=== PATIENT | male | born 1975 | race Caucasian/White ===

== ENCOUNTER 2016-11-16 03:30 | Emergency (ER) | payer MEDICAID ==
[~2016-11-16] VITALS: Ht 172.7 cm; Wt 82.1 kg
[2016-11-16 03:31] VITALS: BP 118/74
[2016-11-16] MEDS ORDERED: IBUPROFEN 200 MG TABLET ONE (03:54)
[2016-11-16] MEDS ORDERED: IBUPROFEN 200 MG TABLET PO ONE (04:00)
== END 2016-11-16 04:52 | disposition home or self-care (01) ==
LOC: ED 04:51
DX: S06.9X2A Unspecified intracranial injury with loss of consciousness of 31 minutes to 59 minutes, initial encounter (principal); S63.622A Sprain of interphalangeal joint of left thumb, initial encounter; Z88.6 Allergy status to analgesic agent; V86.59XA Driver of other special all-terrain or other off-road motor vehicle injured in nontraffic accident, initial encounter; Y99.8 Other external cause status; Y92.488 Other paved roadways as the place of occurrence of the external cause
CPT/HCPCS: 70450; 99284

== ENCOUNTER 2017-06-23 17:43 | Emergency (ER) | payer MEDICAID ==
[~2017-06-23] VITALS: Ht 172.7 cm; Wt 82.5 kg
[2017-06-23 18:00] VITALS: BP 108/69
== END 2017-06-23 19:11 | disposition home or self-care (01) ==
LOC: ED 19:05
DX: K04.7 Periapical abscess without sinus (principal); K02.9 Dental caries, unspecified
CPT/HCPCS: 99283

== ENCOUNTER 2018-04-22 11:18 | Emergency (ER) | payer MEDICAID ==
[~2018-04-22] VITALS: Ht 172.7 cm; Wt 82.0 kg
[2018-04-22] MEDS ORDERED: ALBUTEROL/IPRATROPIUM 2.5MG/0.5MG, 3 ML ONE (11:57)
[2018-04-22] MEDS ORDERED: ALBUTEROL/IPRATROPIUM 2.5MG/0.5MG, 3 ML NPPB ONE (12:00)
[2018-04-22 12:17] LABS: BASOPHILS # (AUTO) 0.04 x10^3/uL (0-0.1); BASOPHILS % (AUTO) 1 % (0-1); EOSINOPHILS # (AUTO) 0.17 x10^3/uL (0-0.4); EOSINOPHILS % (AUTO) 3 % (1-7); LYMPHOCYTES # (AUTO) 1.22 x10^3/uL (1-3.4); LYMPHOCYTES % (AUTO) 20 % (22-44); MD NO; MEAN CORPUSCULAR HGB CONC 34.1 g/dL (33.2-36.2); MEAN CORPUSCULAR VOLUME 93.9 fL (81-97); MEAN PLATELET VOLUME 7.6 fL (7.4-10.4); MONOCYTES # (AUTO) 0.46 x10^3/uL (0.2-0.8); MONOCYTES % (AUTO) 7 % (2-9); NEUTROPHILS # (AUTO) 4.37 x10^3/uL (1.8-6.8); NEUTROPHILS % (AUTO) 70 % (42-75); PLATELET COUNT 289 x10^3/uL (130-400); RED BLOOD COUNT 4.91 x10^6/uL (4.38-5.82); RED CELL DISTRIBUTION WIDTH 13.8 % (9.4-14.8)
[2018-04-22 12:29] LABS: ALBUMIN 3.3 g/dL (3.4-5.0); ANION GAP 7 mmol/L (5-15); CALCIUM 8.6 mg/dL (8.5-10.1); CHLORIDE 108 mmol/L (98-107); CREATININE 0.86 mg/dL (0.7-1.3)
[2018-04-22 12:32] LABS: TROPONIN I < 0.015 ng/mL (0.000-0.045)
[2018-04-22 13:20] VITALS: BP 124/62
== END 2018-04-22 13:26 | disposition home or self-care (01) ==
LOC: ED 13:15
DX: R07.89 Other chest pain (principal); J20.8 Acute bronchitis due to other specified organisms; B97.89 Other viral agents as the cause of diseases classified elsewhere; F17.200 Nicotine dependence, unspecified, uncomplicated
CPT/HCPCS: 36415; 71046; 80048; 82040; 84484; 85025; 93005; 99285; J7512

== ENCOUNTER 2018-04-29 09:53 | Emergency (ER) | payer MEDICAID ==
[~2018-04-29] VITALS: Ht 172.7 cm; Wt 76.2 kg
[2018-04-29 09:56] VITALS: BP 126/76
[2018-04-29] MEDS ORDERED: METHOCARBAMOL 750 MG TABLET ONE (10:28)
[2018-04-29] MEDS ORDERED: KETOROLAC 30 MG/1 ML ONE (10:29)
[2018-04-29] MEDS ORDERED: KETOROLAC 30 MG/1 ML IM ONE (10:30)
[2018-04-29] MEDS ORDERED: METHOCARBAMOL 750 MG TABLET PO ONE (10:30)
== END 2018-04-29 10:39 | disposition home or self-care (01) ==
LOC: ED 10:23
DX: M54.42 Lumbago with sciatica, left side (principal); F17.200 Nicotine dependence, unspecified, uncomplicated
CPT/HCPCS: 96372; 99283; J1885; J7512

== ENCOUNTER 2018-05-30 11:33 | Emergency (ER) | payer MEDICAID ==
[~2018-05-30] VITALS: Ht 172.7 cm; Wt 82.8 kg
[2018-05-30] MEDS ORDERED: KETOROLAC 30 MG/1 ML ONE (12:22)
[2018-05-30] MEDS ORDERED: KETOROLAC 30 MG/1 ML IM ONE (12:30)
[2018-05-30 13:26] VITALS: BP 120/78
== END 2018-05-30 14:55 | disposition home or self-care (01) ==
LOC: ED 12:06
DX: S22.22XA Fracture of body of sternum, initial encounter for closed fracture (principal); Z88.6 Allergy status to analgesic agent; V17.0XXA Pedal cycle driver injured in collision with fixed or stationary object in nontraffic accident, initial encounter; Y93.55 Activity, bike riding; Y92.410 Unspecified street and highway as the place of occurrence of the external cause; Y99.8 Other external cause status
CPT/HCPCS: 71046; 71250; 93005; 96372; 99284; J1885

== ENCOUNTER 2018-06-04 21:04 | Emergency (ER) | payer MEDICAID ==
[~2018-06-04] VITALS: Ht 175.3 cm; Wt 78.8 kg
[2018-06-04] MEDS ORDERED: OXYcodone/APAP 5/325MG TABLET PO ONE (21:30)
[2018-06-04] MEDS ORDERED: OXYC-302 PO (21:32)
[2018-06-04] MEDS ORDERED: IBUP-1222 PO (21:32)
[2018-06-04] MEDS ORDERED: OXYcodone/APAP 5/325MG TABLET ONE (21:34)
[2018-06-04 21:35] VITALS: BP 123/77
== END 2018-06-04 22:32 | disposition home or self-care (01) ==
LOC: ED 21:34
DX: S22.20XA Unspecified fracture of sternum, initial encounter for closed fracture (principal); F17.210 Nicotine dependence, cigarettes, uncomplicated; X58.XXXA Exposure to other specified factors, initial encounter; Y93.89 Activity, other specified; Y92.89 Other specified places as the place of occurrence of the external cause; Y99.8 Other external cause status
CPT/HCPCS: 71046; 93005; 99283

== ENCOUNTER 2018-06-11 21:08 | Emergency (ER) | payer MEDICAID ==
[~2018-06-11] VITALS: Ht 172.7 cm; Wt 81.8 kg
[~2018-06-11 21:08] MED LIST: IBUP-1222 PO; OXYC-302 PO
[2018-06-11 21:10] VITALS: BP 117/79
--- NOTE | 2018-06-11 21:19 | NUR ---
Pt wheeled to room with triage tech.
--- NOTE | 2018-06-11 21:32 | NUR ---
Dr. Posadas at bedside to evaluate pt.
[2018-06-11] MEDS ORDERED: KETOROLAC 30 MG/1 ML ONE (21:40)
--- NOTE | 2018-06-11 21:42 | NUR ---
Pt to imaging, with tech, on randy.
--- NOTE | 2018-06-11 21:52 | NUR ---
Pt back to room from imaging, medicated per AUG.
[2018-06-11] MEDS ORDERED: KETOROLAC 30 MG/1 ML IM ONE (22:00)
--- NOTE | 2018-06-11 22:12 | NUR ---
Patient/Caregiver given discharge instructions and they have confirmed that they understand the instructions. Patient ambulatory with steady gait.
== END 2018-06-11 22:13 | disposition home or self-care (01) ==
LOC: ED 22:12
DX: S22.20XA Unspecified fracture of sternum, initial encounter for closed fracture (principal); G89.11 Acute pain due to trauma; M25.552 Pain in left hip; F17.200 Nicotine dependence, unspecified, uncomplicated; X58.XXXA Exposure to other specified factors, initial encounter; Y93.89 Activity, other specified; Y92.89 Other specified places as the place of occurrence of the external cause; Y99.8 Other external cause status
CPT/HCPCS: 71046; 73502; 93005; 96372; 99283; J1885

== ENCOUNTER 2018-08-09 05:43 | Emergency (ER) | payer MEDICAID ==
[~2018-08-09] VITALS: Ht 172.7 cm; Wt 80.6 kg
[2018-08-09 05:55] VITALS: BP 145/74
[2018-08-09] MEDS ORDERED: IBUPROFEN 200 MG TABLET ONE (06:36)
[2018-08-09] MEDS ORDERED: HYDROcodone/APAP 5/325 TABLET ONE (06:36)
--- NOTE | 2018-08-09 06:41 | NUR ---
PT MEDICATED FOR PAIN AND WAITING FOR XRAY
[2018-08-09] MEDS ORDERED: IBUPROFEN 200 MG TABLET PO ONE (07:00)
[2018-08-09] MEDS ORDERED: HYDROcodone/APAP 5/325 TABLET PO ONE (07:00)
--- NOTE | 2018-08-09 08:48 | NUR ---
Patient/Caregiver given discharge instructions and they have confirmed that they understand the instructions. Patient ambulatory with steady gait. PT LEFT WITH ALL PERSONAL BELONGINGS.
== END 2018-08-09 08:49 | disposition home or self-care (01) ==
LOC: ED 07:13
DX: S63.641A Sprain of metacarpophalangeal joint of right thumb, initial encounter (principal); W00.0XXA Fall on same level due to ice and snow, initial encounter; Y93.89 Activity, other specified; Y92.410 Unspecified street and highway as the place of occurrence of the external cause; Y99.8 Other external cause status
CPT/HCPCS: 29125; 99283

== ENCOUNTER 2018-08-12 19:19 | Emergency (ER) | payer MEDICAID ==
[~2018-08-12] VITALS: Ht 172.7 cm; Wt 78.5 kg
[2018-08-12 19:21] VITALS: BP 128/76
[2018-08-12] MEDS ORDERED: CEPHALEXIN 500 MG CAPSULE PO ONE (20:00)
[2018-08-12] MEDS ORDERED: CEPHALEXIN 500 MG CAPSULE ONE (20:14)
--- NOTE | 2018-08-12 20:19 | NUR ---
PT REFUSE SPLINT
== END 2018-08-12 20:25 | disposition home or self-care (01) ==
LOC: ED 20:22
DX: L03.011 Cellulitis of right finger (principal); F17.200 Nicotine dependence, unspecified, uncomplicated
CPT/HCPCS: 29125; 99283

== ENCOUNTER 2018-08-15 23:08 | Inpatient (IN) | payer MEDICAID ==
[~2018-08-15] VITALS: Ht 172.7 cm; Wt 72.5 kg
--- NOTE | 2018-08-15 23:33 | NUR ---
PT. TO ED WITH C/O RIGHT THUMB/INDEX FINGER PAIN AND SWELLING WORSE OVER THE LAST WEEK. REPORTS HE SMASHED IT ABOUT A MONTH AGO. HAS TAKEN ROUNDS OF ABX HAVE BEEN GIVEN RX FROM THIS HOSPITAL. SIGNIFICANT SWELLING NOTE. FINGER/THUMB GLEZ IN APPEARENCE. RED LINE GOING UP PT. FOREARM. PT. VERY RESTLESS IN ROOM PAICING AROUND AND VERY TEARFUL. IV ESTABLISHED. BLOOD DRAWN. AWAITING PROVIDER EVAL. PT. OFFERED REASSURANCE.
--- NOTE | 2018-08-15 23:41 | NUR ---
DR. KING AT BS NOW.
[2018-08-15] MEDS ORDERED: MORPHINE SULFATE 4 MG/ML, 1ML ONE ×2 (23:47→23:58)
[2018-08-15] MEDS ORDERED: ONDANSETRON 2MG/ML, 2ML ONE (23:47)
[2018-08-15] MEDS: MORPHINE SULFATE 4 MG/ML, 1ML IVPush PRN (23:51)
--- NOTE | 2018-08-15 23:51 | NUR ---
PT. MEDICATED PER AUG FOR 10/10 RIGHT THUMB PAIN. PT. TO X-RAY VIA [facility].
[2018-08-16] MEDS ORDERED: ONDANSETRON 2MG/ML, 2ML IVPush ONE
[2018-08-16] MEDS: MORPHINE SULFATE 4 MG/ML, 1ML IVPush PRN (00:03)
--- NOTE | 2018-08-16 00:04 | NUR ---
PT. REMAINS RESTLESS AND CRYING IN 10 PAIN. 2ND DOSE OF MORPHINE ADMINISTERED PER AUG. LAB AT BS FOR BLOOD CULTURES. PT. AGAIN OFFERED REASSURANCE AND ASKED TO REMAIN STILL FOR BLOOD DRAW. PT. ALSO MADE AWARE OF NEED FOR UA. URINAL AT BS FOR THIS.
[2018-08-16 00:34] LABS: BASOPHILS # (AUTO) 0.06 x10^3/uL (0-0.1); BASOPHILS % (AUTO) 1 % (0-1); EOSINOPHILS # (AUTO) 0.22 x10^3/uL (0-0.4); EOSINOPHILS % (AUTO) 2 % (1-7); LYMPHOCYTES # (AUTO) 1.77 x10^3/uL (1-3.4); LYMPHOCYTES % (AUTO) 17 % (22-44); MD NO; MEAN CORPUSCULAR HEMOGLOBIN 31.2 pg (27.5-34.5); MEAN CORPUSCULAR HGB CONC 33.5 g/dL (33.2-36.2); MEAN CORPUSCULAR VOLUME 93.2 fL (81-97); MEAN PLATELET VOLUME 7.7 fL (7.4-10.4); MONOCYTES # (AUTO) 1.41 x10^3/uL (0.2-0.8); MONOCYTES % (AUTO) 13 % (2-9); NEUTROPHILS # (AUTO) 7.26 x10^3/uL (1.8-6.8); NEUTROPHILS % (AUTO) 68 % (42-75); PLATELET COUNT 311 x10^3/uL (130-400); RED BLOOD COUNT 4.43 x10^6/uL (4.38-5.82)
[2018-08-16 00:40] LABS: ALBUMIN 3.3 g/dL (3.4-5.0); ANION GAP 8 mmol/L (5-15); CALCIUM 8.5 mg/dL (8.5-10.1); CHLORIDE 108 mmol/L (98-107)
--- NOTE | 2018-08-16 00:57 | NUR ---
PT. REPORTS PAIN DOWN TO 3/10 AT THIS TIME. PT. NO LONGER RESTLESS. PT. COOPERATIVE WITH VS AND REPOSITIONING ON [place] FOR SAFETY. CALL LIGHT IN REACH. AWAING RECHECK BY MISSY.
[2018-08-16] MEDS ORDERED: CLINDAMYCIN PMX 600MG/50ML 50 ML ONE (01:17)
--- NOTE | 2018-08-16 01:23 | NUR ---
IV ABX INFUSING PER ORDER. 2 SETS OF BLOOD CULTURES WERE COMPLETED PRIOR. PT. ENCOURAGED TO REMAIN SAFELY ON GURNEY. PT. VERBALIZED UNDERSTANDING AND REPORTS HE WILL REMAIN ON/IN GURNEY. CALL LIGHT IN REACH.
[2018-08-16] MEDS ORDERED: CLINDAMYCIN PMX 600MG/50ML 50 ML IV ONE (01:30)
--- NOTE | 2018-08-16 01:32 | NUR ---
PT. PROVIDED WITH SIPS OF WATER PER OK FROM DR. KING TO HAVE SIPS OF WATER.
--- NOTE | 2018-08-16 01:58 | NUR ---
ASSUMED CARE OF PATIENT. PATIENT RESTING IN ROOM. REGULAR RESP. CALL LIGHT IN PLACE. WILL CONTINUE TO MONITOR.
[2018-08-16 02:23] VITALS: BP 109/71
[2018-08-16] MEDS ORDERED: BUPIVACAINE/PF 0.5% ONE (03:13)
[2018-08-16] MEDS ORDERED: BACITRACIN 50,000 UNIT ONE (03:13)
[2018-08-16] MEDS ORDERED: ONDANSETRON 2MG/ML, 2ML ONE (03:25)
[2018-08-16] MEDS ORDERED: CEFAZOLIN 1,000 MG ONE (03:25)
[2018-08-16] MEDS ORDERED: ROCURONIUM 10 MG/ML,10ML ONE (03:25)
[2018-08-16] MEDS ORDERED: SUCCINYLCHOLINE 20 MG/ML, 10ML ONE (03:25)
[2018-08-16] MEDS ORDERED: PROPOFOL 10 MG/ML, 20ML ONE (03:25)
[2018-08-16] MEDS ORDERED: NALOXONE 0.4 MG/ML, 1ML ONE (03:25)
[2018-08-16] MEDS ORDERED: FENTANYL PF 100 MCG/2ML ONE (03:26)
[2018-08-16] MEDS ORDERED: BUPIVACAINE/PF 0.5% INJ ONE (03:46)
[2018-08-16] MEDS ORDERED: MIDAZOLAM 1 MG/ML, 2ML IV PRN (04:30)
[2018-08-16] MEDS ORDERED: MORPHINE SULFATE 4 MG/ML, 1ML IVPush PRN (04:30)
[2018-08-16] MEDS ORDERED: LABETALOL 5MG/ML, 20ML IV PRN (04:30)
[2018-08-16] MEDS ORDERED: OXYcodone 5 MG/5 ML ORAL.SOL UDC PO PRN (04:30)
[2018-08-16] MEDS ORDERED: DIAZEPAM 5 MG/ML, 2ML IVPush PRN (04:30)
[2018-08-16] MEDS ORDERED: FENTANYL PF 100 MCG/2ML IV PRN (04:30)
[2018-08-16] MEDS ORDERED: MEPERIDINE/PF 25MG/0.5ML IVPush PRN (04:30)
[2018-08-16] MEDS ORDERED: ONDANSETRON ODT 8 MG PO PRN (04:30)
[2018-08-16] MEDS ORDERED: hydrALAzine 20 MG/ML, 1ML IV PRN (04:30)
[2018-08-16] MEDS ORDERED: HYDROmorphone 2 MG/ML, 1ML IVPush PRN (04:30)
[2018-08-16] MEDS ORDERED: ALBUTEROL SULFATE 2.5 MG/3 ML NPPB PRN (04:30)
[2018-08-16] MEDS ORDERED: EPHEDRINE 50 MG/ML, 1ML IVPush PRN (04:30)
[2018-08-16] MEDS ORDERED: DIPHENHYDRAMINE 50 MG/ML, 1ML IVPush PRN (04:30)
[2018-08-16] MEDS ORDERED: ONDANSETRON 2MG/ML, 2ML IV PRN (04:30)
[2018-08-16] MEDS ORDERED: PROMETHAZINE 12.5 MG SUPP PR PRN (04:30)
[2018-08-16] MEDS ORDERED: HALOPERIDOL 5 MG/ML IV PRN (04:30)
[2018-08-16] MEDS ORDERED: PROMETHAZINE 25 MG/ML, 1ML IV PRN (04:30)
[2018-08-16] MEDS: SODIUM CHLORIDE 0.9% 1,000 ML IV SCH ×3 (04:59→17:42)
[2018-08-16 05:29] VITALS: BP 106/69
[2018-08-16] MEDS ORDERED: DOCUSATE 100 MG CAPSULE PO PRN (06:00)
[2018-08-16] MEDS ORDERED: ACETAMINOPHEN 325 MG TABLET PO PRN (06:00)
[2018-08-16] MEDS ORDERED: ONDANSETRON 2MG/ML, 2ML IVPush PRN (06:00)
[2018-08-16] MEDS: CLINDAMYCIN PMX 600MG/50ML 50 ML IV SCH ×2 (09:20→17:41)
[2018-08-16 12:52] VITALS: BP 113/69
[2018-08-16] MEDS: OXYcodone IR 5MG TABLET PO PRN ×2 (14:37→18:31)
[2018-08-16] MEDS: NICOTINE 21 MG/24 HR PATCH.TD24 TD SCH (15:12)
[2018-08-16 15:15] LABS: AMPHETAMINE SCREEN, URINE Positive (Negative); BARBITURATE SCREEN, URINE Negative (Negative); BENZODIAZEPINE SCREEN, URINE Negative (Negative); CANNABINOID SCREEN, URINE Negative (Negative); COCAINE SCREEN, URINE Negative (Negative); METHADONE SCREEN, URINE Negative (Negative); OPIATE SCREEN, URINE Positive (Negative)
[2018-08-16] MEDS: KETOROLAC 30 MG/1 ML IV PRN (17:41)
[2018-08-16] MEDS: morphine SULFATE 10 MG/ML, 1ML IVPush PRN (17:41)
[2018-08-16 19:23] VITALS: BP 121/76
[2018-08-16 23:45] VITALS: BP 113/70
[2018-08-17] MEDS: CLINDAMYCIN PMX 600MG/50ML 50 ML IV SCH ×3 (02:12→09:15)
[2018-08-17] MEDS: SODIUM CHLORIDE 0.9% 1,000 ML IV SCH ×2 (02:14→08:22)
[2018-08-17 03:18] VITALS: BP 108/64
[2018-08-17 05:35] LABS: BASOPHILS # (AUTO) 0.03 x10^3/uL (0-0.1); BASOPHILS % (AUTO) 0 % (0-1); EOSINOPHILS # (AUTO) 0.17 x10^3/uL (0-0.4); EOSINOPHILS % (AUTO) 2 % (1-7); LYMPHOCYTES # (AUTO) 1.37 x10^3/uL (1-3.4); LYMPHOCYTES % (AUTO) 17 % (22-44); MD NO; MEAN CORPUSCULAR HEMOGLOBIN 32.6 pg (27.5-34.5); MEAN CORPUSCULAR HGB CONC 34.5 g/dL (33.2-36.2); MEAN CORPUSCULAR VOLUME 94.5 fL (81-97); MEAN PLATELET VOLUME 7.5 fL (7.4-10.4); MONOCYTES # (AUTO) 1.05 x10^3/uL (0.2-0.8); MONOCYTES % (AUTO) 13 % (2-9); NEUTROPHILS % (AUTO) 67 % (42-75); PLATELET COUNT 264 x10^3/uL (130-400); RED BLOOD COUNT 3.81 x10^6/uL (4.38-5.82); RED CELL DISTRIBUTION WIDTH 13.3 % (9.4-14.8)
[2018-08-17 05:46] LABS: ANION GAP 5 mmol/L (5-15); CALCIUM 8.2 mg/dL (8.5-10.1); CHLORIDE 107 mmol/L (98-107)
[2018-08-17 05:49] LABS: CREATININE 0.59 mg/dL (0.7-1.3)
[2018-08-17 06:55] VITALS: BP 127/79
[2018-08-17] MEDS: ACETAMINOPHEN 325 MG TABLET PO PRN ×2 (08:21→15:44)
[2018-08-17] MEDS: OXYcodone IR 5MG TABLET PO PRN ×3 (08:22→19:51)
[2018-08-17] MEDS: morphine SULFATE 10 MG/ML, 1ML IVPush PRN ×2 (10:12→17:07)
[2018-08-17] MEDS: KETOROLAC 30 MG/1 ML IV PRN ×2 (10:12→17:07)
[2018-08-17] MEDS ORDERED: VANCOMYCIN PER PHARMACY MC PRN (13:00)
[2018-08-17] MEDS ORDERED: PHARMACOKINETIC CONSULTATION MC ONE (13:30)
[2018-08-17] MEDS ORDERED: PHARMACOKINETIC MONITORING MC PRN (13:30)
[2018-08-17 13:43] LABS: HCT (SEDRATE) 36.1 % (39.2-51.8)
[2018-08-17] MEDS: PIPERACILLIN/TAZO/PMX 3.375GM 50 ML IV SCH ×2 (15:08→21:08)
[2018-08-17 15:25] VITALS: BP 116/74
[2018-08-17] MEDS: NICOTINE 21 MG/24 HR PATCH.TD24 TD SCH (15:44)
[2018-08-17] MEDS: VANCOMYCIN 1,400 MG in SODIUM CHLORIDE 0.9% 250 ML IV SCH (15:44)
[2018-08-17] MEDS: POLYETHYLENE GLYCOL 17 GM PACKET PO PRN (17:16)
[2018-08-17] MEDS: DOCUSATE 100 MG CAPSULE PO PRN (17:16)
[2018-08-17 18:40] VITALS: BP 114/61
[2018-08-18 00:41] VITALS: BP 117/78
[2018-08-18] MEDS: KETOROLAC 30 MG/1 ML IV PRN ×3 (01:06→22:12)
[2018-08-18] MEDS: OXYcodone IR 5MG TABLET PO PRN ×4 (01:06→19:59)
[2018-08-18] MEDS ORDERED: SODIUM CHLORIDE 0.9% 1,000 ML IV SCH (02:44)
[2018-08-18] MEDS: PIPERACILLIN/TAZO/PMX 3.375GM 50 ML IV SCH ×4 (03:12→22:12)
[2018-08-18] MEDS: VANCOMYCIN 1,400 MG in SODIUM CHLORIDE 0.9% 250 ML IV SCH ×2 (04:14→16:35)
[2018-08-18 05:13] LABS: ANION GAP 3 mmol/L (5-15); CALCIUM 8.3 mg/dL (8.5-10.1); CHLORIDE 111 mmol/L (98-107); CREATININE 0.77 mg/dL (0.7-1.3)
[2018-08-18 05:24] LABS: BASOPHILS # (AUTO) 0.03 x10^3/uL (0-0.1); BASOPHILS % (AUTO) 1 % (0-1); EOSINOPHILS # (AUTO) 0.39 x10^3/uL (0-0.4); EOSINOPHILS % (AUTO) 5 % (1-7); LYMPHOCYTES # (AUTO) 1.64 x10^3/uL (1-3.4); LYMPHOCYTES % (AUTO) 23 % (22-44); MD NO; MEAN CORPUSCULAR HEMOGLOBIN 33.8 pg (27.5-34.5); MEAN CORPUSCULAR HGB CONC 35.1 g/dL (33.2-36.2); MEAN CORPUSCULAR VOLUME 96.4 fL (81-97); MEAN PLATELET VOLUME 7.6 fL (7.4-10.4); MONOCYTES # (AUTO) 0.89 x10^3/uL (0.2-0.8); MONOCYTES % (AUTO) 12 % (2-9); NEUTROPHILS # (AUTO) 4.28 x10^3/uL (1.8-6.8); NEUTROPHILS % (AUTO) 59 % (42-75); PLATELET COUNT 278 x10^3/uL (130-400); RED BLOOD COUNT 3.82 x10^6/uL (4.38-5.82); RED CELL DISTRIBUTION WIDTH 13.3 % (9.4-14.8)
[2018-08-18 07:17] VITALS: BP 116/72
[2018-08-18] MEDS: DOCUSATE 100 MG CAPSULE PO PRN (08:55)
[2018-08-18] MEDS: ACETAMINOPHEN 325 MG TABLET PO PRN ×2 (08:55→15:57)
[2018-08-18] MEDS: POLYETHYLENE GLYCOL 17 GM PACKET PO PRN (08:56)
[2018-08-18] MEDS ORDERED: FOLIC ACID 1 MG TABLET PO SCH (09:00)
[2018-08-18] MEDS ORDERED: THIAMINE 100MG TABLET PO SCH (09:00)
[2018-08-18] MEDS: morphine SULFATE 10 MG/ML, 1ML IVPush PRN (11:05)
[2018-08-18] MEDS ORDERED: HYDROmorphone 1 MG/ML, 1ML IV PRN (13:30)
[2018-08-18 14:15] VITALS: BP 106/67
[2018-08-18] MEDS: NICOTINE 21 MG/24 HR PATCH.TD24 TD SCH (15:54)
[2018-08-18 19:54] VITALS: BP 119/73
[2018-08-19 01:04] VITALS: BP 112/60
[2018-08-19] MEDS: OXYcodone IR 5MG TABLET PO PRN ×2 (02:33→06:28)
[2018-08-19] MEDS: PIPERACILLIN/TAZO/PMX 3.375GM 50 ML IV SCH (03:58)
[2018-08-19] MEDS: VANCOMYCIN 1,400 MG in SODIUM CHLORIDE 0.9% 250 ML IV SCH (04:44)
[2018-08-19] MEDS: KETOROLAC 30 MG/1 ML IV PRN (06:28)
== END 2018-08-19 09:30 | disposition left against medical advice (07) | DRG 580 ==
LOC: ED 08-16 00:22 → EDIP 08-16 01:52 → 4NOR 08-16 02:15
PROVIDERS: ADMIT Internal Medicine; ATTEND Internal Medicine
PROC: 0K9C0ZZ Drainage of Right Hand Muscle, Open Approach (ICD-10-PCS; 2018-08-16)
PROC: 0J9J0ZZ Drainage of Right Hand Subcutaneous Tissue and Fascia, Open Approach (ICD-10-PCS; principal; 2018-08-16 03:00)
DX: L03.113 Cellulitis of right upper limb (principal); L02.511 Cutaneous abscess of right hand; Z53.21 Procedure and treatment not carried out due to patient leaving prior to being seen by health care provider; F17.200 Nicotine dependence, unspecified, uncomplicated; F15.10 Other stimulant abuse, uncomplicated; K59.00 Constipation, unspecified; M54.30 Sciatica, unspecified side; R53.83 Other fatigue; D64.9 Anemia, unspecified
CPT/HCPCS: 36415; 80048; 80307; 82040; 85025; 85651; 86140; 87040; 87070; 87075; 87077; 87186; 87205; 96365; 96375; G0378; J0690; J1885; J2310; J2405; J2543; J2704; J3010; J3370; J3490; J0330; J2270; J7030; J7050

== ENCOUNTER 2019-12-05 22:58 | Emergency (ER) | payer MEDICAID ==
[~2019-12-05] VITALS: Ht 172.7 cm; Wt 74.0 kg
[2019-12-05] MEDS ORDERED: IBUPROFEN 800 MG TABLET PO STA (23:25)
[2019-12-05] MEDS ORDERED: SULFAMETH./TRIMETHOPRIM DS 800MG/160MG TABLET PO ONE (23:30)
[2019-12-05] MEDS ORDERED: SULFAMETH./TRIMETHOPRIM DS 800MG/160MG TABLET ONE (23:39)
[2019-12-05] MEDS ORDERED: IBUPROFEN 800 MG TABLET ONE (23:39)
--- NOTE | 2019-12-05 23:56 | NUR ---
PT. HAS A WOUND/BITE TO THE LEFT POSTERIOR SKULL. PT. WAS MEDICATED FOR PAIN AND INFECTION ORDERED. PT. REMAINS A & O X 4 WITH A GCS OF 15. DISCHARGE INSTRUCTIONS WERE GIVEN WELL A SCRIPT. UNDERSTANDING WAS VERBALIZED ALONG WITH WILLINGNESS TO COMPLY. PT. WAS AMBULATORY WITH A STEADY GAIT TO DISCHARGE. VSS.
[2019-12-05 23:59] VITALS: BP 108/76
== END 2019-12-06 00:11 | disposition home or self-care (01) ==
LOC: ED 23:51
DX: L02.811 Cutaneous abscess of head [any part, except face] (principal); F17.200 Nicotine dependence, unspecified, uncomplicated
CPT/HCPCS: 99283

== ENCOUNTER 2020-10-13 06:25 | Emergency (ER) | payer MEDICAID ==
[~2020-10-13] VITALS: Ht 175.3 cm; Wt 80.4 kg
[~2020-10-13 06:25] MED LIST changes: -OXYC-302 PO; +OXYC1TAB14 PO
[2020-10-13 06:27] VITALS: BP 119/80
[2020-10-13] MEDS ORDERED: HYDROcodone/APAP 5/325 TABLET ONE (06:57)
[2020-10-13] MEDS ORDERED: HYDROcodone/APAP 5/325 TABLET PO PRN (07:00)
== END 2020-10-13 09:57 | disposition home or self-care (01) ==
LOC: ED 09:41
DX: S63.064A Dislocation of metacarpal (bone), proximal end of right hand, initial encounter (principal); X58.XXXA Exposure to other specified factors, initial encounter; Y93.89 Activity, other specified; Y92.009 Unspecified place in unspecified non-institutional (private) residence as the place of occurrence of the external cause; Y99.8 Other external cause status
CPT/HCPCS: 29125; 99284